=== PATIENT | male | born 1985 ===

== ENCOUNTER 2020-06-18 05:55 | Day surgery (SDC) | payer OTHER ==
[2020-06-18] MEDS ORDERED: ULTRAM50 MG PO (09:29)
== END 2020-06-18 12:30 | disposition home or self-care (01) ==
LOC: CIR.AMB 05:55
PROVIDERS: ATTEND Surgery
DX: N43.42 Spermatocele of epididymis, multiple (principal); Z20.822 Contact with and (suspected) exposure to COVID-19